=== PATIENT | male | born 1970 | race Caucasian/White ===

== ENCOUNTER 2021-06-07 16:28 | Emergency (ER) | payer BC, SELFPAY ==
[2021-06-07 16:36] VITALS: BP 159/105; PULSE 69; RESP 14; TEMP 36.7; O2SAT 98
--- NOTE | 2021-06-07 16:46 | ED.EAR ---
HPI - Ear Problem General Chief complaint: Ear Stated complaint: Ear pain Time Seen by Provider: 06/07/21 16:32 Source: patient Mode of arrival: ambulatory Limitations: no limitations History of Present Illness HPI Narrative: 51-year-old male presents to [facility] with complaints of clogged sensation to his bilateral ears, left is worse than right for the past month. Patient reports that he has been using [id number]bro[employer] and got a large amount of wax out. Patient reports that the base in his truck and TV has been bothering his ears. Patient denies ear drainage, fever, bites, chills, cough, runny nose or nasal congestion Location: right ear Relieving factors: nothing Exacerbating factors: nothing Discharge from ear: Reports no Treatment prior to arrival: eardrops Related Data Allergies Allergy/AdvReac Type Severity Reaction Status Date / Time acetylcholine Allergy Other Verified 06/07/21 16:43 Review of Systems Constitutional: Constitutional: Denies chills, Denies fatigue, Denies fever(s) and Denies weakness ENT: Denies dysphagia, Denies epistaxis and Denies sore throat Comments: Clogged sensation of bilateral ears Cardiovascular: Cardiovascular: Denies chest pain, Denies rapid heart rate, Denies radiating jaw, neck or arm pain and Denies slow heart rate Respiratory: Respiratory: Denies cough Gastrointestinal: Gastrointestinal: Denies abdominal pain, Denies constipation, Denies diarrhea, Denies nausea and Denies vomiting PMFSH Past Medical History Medical History (Updated 06/07/21 @ 16:51 by Francoise Morrell APRN) Tonsillectomy planned Surgical History Surgical History (Updated 06/07/21 @ 16:48 by Francoise Morrell APRN) History of appendectomy Social History Social History (Updated 06/07/21 @ 16:48 by Francoise Morrell APRN) Smoking status: Never smoker Comments At time of signature, I agree with nursing past medical, surgical, social and family history. There is no relevant family history pertinent to the presenting complaint. Exam Const: General: healthy appearing and no acute distress Orientation/consciousness: patient oriented x3 HENMT: Head: normal to inspection Ears: EAC's normal and TM abnormal wth effusion serous on the left and erythematous on the left General nose exam: Normal nares present Face and sinus: normal facial exam Mouth: Yes lip normal and Yes moist mucous membranes Throat: uvula midline Neck: Neck: normal visual inspection Resp: Effort & Inspection: normal respiratory effort Auscultation: clear to auscultation bilaterally Cardio: Rate: regular rate Rhythm: regular rhythm and regular rhythm Skin: General skin exam: normal color Rashes: no rashes Wounds: no wounds Neuro: General: patient oriented x3, moves all extremities and no meningeal signs Psych: Mental Status: mental status grossly normal Affect: normal affect Attitude: cooperative Course Vital Signs Vital signs: Vital Signs Temperature 36.7 C 06/07/21 16:36 Pulse Rate 69 06/07/21 16:36 Respiratory Rate 14 06/07/21 16:36 Blood Pressure 159/105 H 06/07/21 16:36 Pulse Oximetry 98 06/07/21 16:36 Temperature 36.7 C 06/07/21 16:36 Pulse Rate 69 06/07/21 16:36 Respiratory Rate 14 06/07/21 16:36 Blood Pressure 159/105 H 06/07/21 16:36 Pulse Oximetry 98 06/07/21 16:36 Medical Decision Making MDM Narrative Medical decision making narrative: Patient agrees take Claritin Flonase daily. Patient agrees take Amoxil as prescribed. Patient agrees to proceed to the emergency room if symptoms worsen. Patient instructed to follow-up with primary care provider to have blood pressure evaluated Differential Diagnosis Differential Diagnosis: Cerumen impaction, otitis externa, acute otalgia Vital Signs Vital Signs: Vital Signs Temperature 36.7 C 06/07/21 16:36 Pulse Rate 69 06/07/21 16:36 Respiratory Rate 14 06/07/21 16:36 Blood Pressure 159/105 H 06/07/21 16:3
[2021-06-07 16:53] VITALS: BP 140/100
== END 2021-06-07 16:56 | disposition home or self-care (01) ==
PROVIDERS: Emergency Provider Nurse Practitioner Family
DX: H69.93 Unspecified Eustachian tube disorder, bilateral (principal); H65.02 Acute serous otitis media, left ear
CPT/HCPCS: 99213; G0463